=== PATIENT | female | born 1965 | race Caucasian/White ===

== ENCOUNTER 2016-11-24 07:47 | Day surgery (SDC) | payer OTHER ==
[~2016-11-24] VITALS: Ht 144.8 cm; Wt 78.0 kg
[~2016-11-24 07:47] MED LIST: ALLI60 MG PO; ANORO ELLIPTA1 EACH IH; LYRICA50 MG PO; NAPROSYN500 MG PO; NORCO 7.5/321 TABLET PO; SYNTHROID88 MCG PO
[2016-11-24 08:28] VITALS: BP 120/69
[2016-11-24 12:35] VITALS: BP 132/79
[2016-11-24 13:42] VITALS: BP 125/72
== END 2016-11-24 14:10 | disposition home or self-care (01) ==
LOC: SDC 07:47
DX: M20.12 Hallux valgus (acquired), left foot (principal); M20.42 Other hammer toe(s) (acquired), left foot; K21.9 Gastro-esophageal reflux disease without esophagitis; E03.9 Hypothyroidism, unspecified
CPT/HCPCS: C1769; J0690; J0696; J1100; J2250; J2405; J3010; J7050; S0020